=== PATIENT | male | born 1945 | race Caucasian/White ===

== ENCOUNTER → 2016-04-01 | Outpatient (CLI) | payer MEDICARE, BC ==
[~2016-04-01] MED LIST: ACETAMINOPHEN W1 TA6 PO; ALEVE 220MG220 MG PO; CLEOCIN HCL300 MG PO; DEPO-TESTOS200 MG/M1 IM; MECLIZINE12.5 MG PO; NAPROXEN220 MG PO; ROBAXIN 75750 MG/TAB PO; TESTOSTERONE1 POW IM; TYLENOL 500MG500 MG PO; ULTRAM 50MG TAB50 MG PO; [UNRECOGNIZED DRUG - OTHER] PO
== END ==
LOC: RAD 09:32
DX: M25.572 Pain in left ankle and joints of left foot (principal); Z87.828 Personal history of other (healed) physical injury and trauma

== ENCOUNTER → 2016-12-25 | Outpatient (CLI) | payer MEDICARE, BC ==
[2013-06-01 10:04] VITALS: BP 146/88
== END ==
LOC: LAB 16:21
DX: J42 Unspecified chronic bronchitis (principal); E11.9 Type 2 diabetes mellitus without complications; Z86.19 Personal history of other infectious and parasitic diseases

== ENCOUNTER → 2017-10-08 | Outpatient (CLI) | payer MEDICARE, BC ==
[2013-06-01 10:04] VITALS: BP 146/88
[2017-10-08 12:17] LABS: PROTHROMBIN TIME 12.2 SECONDS (9.0-12.0)
== END ==
LOC: LAB 11:51
PROVIDERS: Family Medicine
DX: I25.10 Atherosclerotic heart disease of native coronary artery without angina pectoris (principal); I34.0 Nonrheumatic mitral (valve) insufficiency

== ENCOUNTER → 2017-11-10 | Outpatient (CLI) | payer MEDICARE, BC ==
[2013-06-01 10:04] VITALS: BP 146/88
== END ==
LOC: VAS 15:45 → RAD 16:00
DX: I34.0 Nonrheumatic mitral (valve) insufficiency (principal); I27.0 Primary pulmonary hypertension; Z95.2 Presence of prosthetic heart valve

== ENCOUNTER → 2018-03-16 | Outpatient (CLI) | payer MEDICARE, BC ==
[2013-06-01 10:04] VITALS: BP 146/88
[2018-03-16 11:46] LABS: PROTHROMBIN TIME 21.9 SECONDS (9.0-12.0)
== END ==
LOC: RAD 11:24
PROVIDERS: Family Medicine
DX: J98.4 Other disorders of lung (principal); J98.6 Disorders of diaphragm; Z95.1 Presence of aortocoronary bypass graft; Z95.2 Presence of prosthetic heart valve; Z96.89 Presence of other specified functional implants; Z98.890 Other specified postprocedural states

== ENCOUNTER → 2018-04-03 | Outpatient (CLI) | payer MEDICARE, BC ==
[2013-06-01 10:04] VITALS: BP 146/88
[2018-04-03 12:29] LABS: PROTHROMBIN TIME 32.7 SECONDS (9.0-12.0)
== END ==
LOC: LAB 12:04
PROVIDERS: Family Medicine
DX: I25.10 Atherosclerotic heart disease of native coronary artery without angina pectoris (principal); I05.1 Rheumatic mitral insufficiency

== ENCOUNTER → 2018-09-09 | Outpatient (CLI) | payer MEDICARE, BC ==
[2013-06-01 10:04] VITALS: BP 146/88
[2018-09-09 12:40] LABS: EOS # 0.3 (0.04-0.40); EOS % 3.6 % (0.0-4.0); HEMATOCRIT 43.5 % (42.0-52.0); HEMOGLOBIN 14.4 g/dL (13.5-18.0); LYMPH# 0.9 (1.50-4.00); MEAN CELL VOLUME 88 fl (78-100); MEAN CORPUSCULAR HEMOGLOBIN 29 pg (27-31); MEAN CORPUSCULAR HGB CONC 33 g/dL (33-37); MEAN PLATELET VOLUME 10.5 fl (7.4-10.4); MONO # 0.7 (0.20-0.80); NEU # 5.5 (1.40-6.50); PLATELET COUNT 256 K/mm3 (130-400); RED BLOOD COUNT 4.93 M/mm3 (4.20-5.60); WHITE BLOOD COUNT 7.4 K/mm3 (4.8-10.8)
[2018-09-09 13:17] LABS: ALBUMIN 4.4 g/dL (3.4-4.8); CALCIUM 10.1 mg/dL (8.3-10.5); POTASSIUM 4.2 mmol/L (3.5-5.1); TOTAL BILIRUBIN 1.3 mg/dL (0.2-1.2); TOTAL PROTEIN 7.2 g/dL (6.2-8.1)
== END ==
LOC: LAB 12:17
PROVIDERS: Family Medicine
DX: E11.9 Type 2 diabetes mellitus without complications (principal); I65.29 Occlusion and stenosis of unspecified carotid artery; E04.2 Nontoxic multinodular goiter

== ENCOUNTER → 2019-09-22 | Outpatient (CLI) | payer MEDICARE, BC ==
[2013-06-01 10:04] VITALS: BP 146/88
[2019-09-22 12:22] LABS: HEMATOCRIT 42.3 % (42.0-52.0); HEMOGLOBIN 14.2 g/dL (13.5-18.0); MEAN CELL VOLUME 89 fl (78-100); MEAN CORPUSCULAR HEMOGLOBIN 30 pg (27-31); MEAN CORPUSCULAR HGB CONC 34 g/dL (33-37); MEAN PLATELET VOLUME 10.2 fl (7.4-10.4); PLATELET COUNT 232 K/mm3 (130-400); RED BLOOD COUNT 4.76 M/mm3 (4.20-5.60); RED CELL DISTRIBUTION WIDTH 13.5 % (11.5-14.5)
[2019-09-22 12:26] LABS: POTASSIUM 4.4 mmol/L (3.5-5.1)
[2019-09-22 12:27] LABS: ALBUMIN 4.5 g/dL (3.4-4.8)
[2019-09-22 12:28] LABS: CALCIUM 10.1 mg/dL (8.3-10.5)
[2019-09-22 12:29] LABS: TOTAL PROTEIN 6.9 g/dL (6.2-8.1)
[2019-09-22 12:31] LABS: TOTAL BILIRUBIN 2.2 mg/dL (0.2-1.2)
[2019-09-22 12:32] LABS: LYMPHOCYTE 12 % (20-51); MONOCYTE 8 % (3-10); NEUTROPHILS 78 % (42-75)
== END ==
LOC: LAB 12:08
PROVIDERS: Family Medicine
DX: Z00.00 Encounter for general adult medical examination without abnormal findings (principal); E11.9 Type 2 diabetes mellitus without complications; E78.5 Hyperlipidemia, unspecified; E04.2 Nontoxic multinodular goiter

== ENCOUNTER → 2020-09-18 | Outpatient (CLI) | payer MEDICARE, BC ==
[2020-09-18 12:53] LABS: BASO # 0.03 (0.02-0.10); EOS # 0.29 (0.04-0.40); EOS % 3.9 % (0.0-4.0); HEMATOCRIT 43.1 % (42.0-52.0); HEMOGLOBIN 14.5 g/dL (13.5-18.0); LYMPH# 0.78 (1.50-4.00); MEAN CELL VOLUME 89 fl (78-100); MEAN CORPUSCULAR HEMOGLOBIN 30 pg (27-31); MEAN CORPUSCULAR HGB CONC 34 g/dL (33-37); MEAN PLATELET VOLUME 10.3 fl (7.4-10.4); MONO # 0.62 (0.20-0.80); NEU # 5.64 (1.40-6.50); PLATELET COUNT 231 K/mm3 (130-400); RED BLOOD COUNT 4.85 M/mm3 (4.20-5.60); RED CELL DISTRIBUTION WIDTH 13.3 % (11.5-14.5); WHITE BLOOD COUNT 7.4 K/mm3 (4.8-10.8)
[2020-09-18 13:06] LABS: ALBUMIN 4.3 g/dL (3.4-4.8); POTASSIUM 4.5 mmol/L (3.5-5.1)
[2020-09-18 13:07] LABS: CALCIUM 9.5 mg/dL (8.3-10.5)
[2020-09-18 13:08] LABS: TOTAL PROTEIN 7.2 g/dL (6.2-8.1)
[2020-09-18 13:10] LABS: TOTAL BILIRUBIN 1.2 mg/dL (0.2-1.2)
== END ==
LOC: LAB 12:32 → RAD 12:32
PROVIDERS: Family Medicine
DX: Z00.00 Encounter for general adult medical examination without abnormal findings (principal); M51.36 Other intervertebral disc degeneration, lumbar region; M40.56 Lordosis, unspecified, lumbar region; K80.20 Calculus of gallbladder without cholecystitis without obstruction; M16.11 Unilateral primary osteoarthritis, right hip; I65.29 Occlusion and stenosis of unspecified carotid artery; R53.83 Other fatigue; E78.5 Hyperlipidemia, unspecified; E11.9 Type 2 diabetes mellitus without complications; Z96.642 Presence of left artificial hip joint

== ENCOUNTER → 2021-06-11 | Outpatient (CLI) | payer MEDICARE, BC ==
[2021-06-11 16:06] LABS: BASO # 0.04 K/mm3 (0.02-0.10); EOS # 0.25 K/mm3 (0.04-0.40); EOS % 2.9 % (0.0-4.0); HEMATOCRIT 36.9 % (42.0-52.0); HEMOGLOBIN 12.6 g/dL (13.5-18.0); LYMPH# 0.82 K/mm3 (1.50-4.00); MEAN CELL VOLUME 89 fl (78-100); MEAN CORPUSCULAR HEMOGLOBIN 30 pg (27-31); MEAN CORPUSCULAR HGB CONC 34 g/dL (33-37); MEAN PLATELET VOLUME 9.6 fl (7.4-10.4); MONO # 0.63 K/mm3 (0.20-0.80); NEU # 6.87 K/mm3 (1.40-6.50); PLATELET COUNT 272 K/mm3 (130-400); RED BLOOD COUNT 4.16 M/mm3 (4.20-5.60); RED CELL DISTRIBUTION WIDTH 13.3 % (11.5-14.5); WHITE BLOOD COUNT 8.6 K/mm3 (4.8-10.8)
[2021-06-11 16:22] LABS: POTASSIUM 4.3 mmol/L (3.5-5.1); PROTHROMBIN TIME 10.2 SECONDS (9.0-12.0)
[2021-06-11 16:23] LABS: CALCIUM 9.7 mg/dL (8.3-10.5)
[2021-06-11 16:24] LABS: TOTAL PROTEIN 6.5 g/dL (6.2-8.1)
[2021-06-11 16:26] LABS: TOTAL BILIRUBIN 0.8 mg/dL (0.2-1.2)
[2021-06-11 19:21] LABS: URINE APPEARANCE CLEAR; URINE BILIRUBIN NEGATIVE (NEGATIVE); URINE BLOOD NEGATIVE (NEGATIVE); URINE COLOR YELLOW; URINE GLUCOSE NEGATIVE (NEGATIVE); URINE KETONE NEGATIVE (NEGATIVE); URINE LEUKOCYTE ESTERASE NEGATIVE (NEGATIVE); URINE NITRATE NEGATIVE (NEGATIVE); URINE PROTEIN(semi-quant) TRACE (NEGATIVE); URINE UROBILINOGEN NORMAL (NORMAL)
[2021-06-11 19:22] LABS: URINE MUCUS PRESENT (NOT PRESENT)
== END ==
LOC: AMSURD 05-25 08:07
PROVIDERS: Family Medicine
DX: Z01.811 Encounter for preprocedural respiratory examination (principal); Z20.822 Contact with and (suspected) exposure to COVID-19; I48.91 Unspecified atrial fibrillation; I65.29 Occlusion and stenosis of unspecified carotid artery; I25.10 Atherosclerotic heart disease of native coronary artery without angina pectoris; J44.9 Chronic obstructive pulmonary disease, unspecified; I10 Essential (primary) hypertension; G47.00 Insomnia, unspecified; E29.1 Testicular hypofunction; I34.0 Nonrheumatic mitral (valve) insufficiency; E04.2 Nontoxic multinodular goiter; M19.90 Unspecified osteoarthritis, unspecified site; E11.9 Type 2 diabetes mellitus without complications; E55.9 Vitamin D deficiency, unspecified

== ENCOUNTER → 2023-03-04 | Outpatient (CLI) | payer MEDICARE, BC | LOC: RAD 15:24 | DX: M50.322 Other cervical disc degeneration at C5-C6 level (principal); M48.02 Spinal stenosis, cervical region ==

== ENCOUNTER → 2023-06-13 | Outpatient (CLI) | payer MEDICARE, BC | LOC: RAD 15:49 | DX: Z96.643 Presence of artificial hip joint, bilateral (principal) ==

== ENCOUNTER → 2023-12-29 | Outpatient (CLI) | payer MEDICARE, BC ==
[2023-12-29 17:39] LABS: BASO # 0.05 K/mm3 (0.02-0.10); EOS # 0.31 K/mm3 (0.04-0.40); EOS % 3.6 % (0.0-4.0); HEMATOCRIT 37.2 % (42.0-52.0); HEMOGLOBIN 12.1 g/dL (13.5-18.0); LYMPH# 0.83 K/mm3 (1.50-4.00); MEAN CELL VOLUME 96 fl (78-100); MEAN CORPUSCULAR HEMOGLOBIN 31 pg (27-31); MEAN CORPUSCULAR HGB CONC 33 g/dL (33-37); MEAN PLATELET VOLUME 10.2 fl (7.4-10.4); MONO # 0.82 K/mm3 (0.20-0.80); NEU # 6.65 K/mm3 (1.40-6.50); PLATELET COUNT 239 K/mm3 (130-400); RED BLOOD COUNT 3.89 M/mm3 (4.20-5.60); RED CELL DISTRIBUTION WIDTH 13.9 % (11.5-14.5); WHITE BLOOD COUNT 8.7 K/mm3 (4.8-10.8)
[2023-12-29 17:43] LABS: CALCIUM 9.2 mg/dL (8.3-10.5)
[2023-12-29 17:44] LABS: TOTAL PROTEIN 6.1 g/dL (6.2-8.1)
[2023-12-29 17:46] LABS: TOTAL BILIRUBIN 1.2 mg/dL (0.2-1.2)
== END ==
LOC: LAB 17:19
PROVIDERS: Family Medicine
DX: U07.1 COVID-19 (principal); I10 Essential (primary) hypertension; E04.2 Nontoxic multinodular goiter; E11.9 Type 2 diabetes mellitus without complications; N40.1 Benign prostatic hyperplasia with lower urinary tract symptoms